=== PATIENT | female | born 1950 | race Caucasian/White ===

== ENCOUNTER → 2021-09-26 | Day surgery (SDC) | payer MEDICARE, OTHER ==
[~2021-09-26] VITALS: Ht 160 cm; Wt 87.5 kg
[~2021-09-26] MED LIST: ASCORBIC ACID500 MG PO; DAILY VITE1 EACH PO; ELAVIL25 MG PO; HCTZ25 MG PO; MELOXICAM15 MG PO; METFORMIN HCL500 M3 PO; PANTOPRAZOLE SO20 MG PO; VITAMIN B-121000 MC1 PO; VITAMIN D31250 MC1 PO; ZINC10 MG PO; ZOLPIDEM TARTRA10 MG PO
[2021-09-26 06:50] LABS: HCT 36.3 % (37.0-47.0); HGB 12.3 g/dl (12.5-16.0); MCH 31.5 pg (25.0-31.0); MCHC 33.9 g/dL (32.0-36.0); MCV 93.1 fL (78.0-100.0); RBC 3.9 M/uL (4.20-5.40); RDW 12.3 % (11.5-14.0); WBC 10.1 K/uL (4.0-10.5)
[2021-09-26 07:11] LABS: CREATININE 0.73 mg/dL (0.51-0.95); POTASSIUM 3.5 mmol/L (3.5-5.1)
== END | disposition home or self-care (01) ==
LOC: FAS 06:02
PROVIDERS: Anesthesiology; Legal Medicine
DX: G56.01 Carpal tunnel syndrome, right upper limb (principal); R73.03 Prediabetes; Z79.1 Long term (current) use of non-steroidal anti-inflammatories (NSAID); Z79.84 Long term (current) use of oral hypoglycemic drugs; Z79.899 Other long term (current) drug therapy
CPT/HCPCS: 36415; 80048; J0690; J1885; J2250; J2405; J2704; J2795; J3010; J7120